=== PATIENT | female | born 1995 | race Hispanic/Latino ===

== ENCOUNTER 2017-08-19 04:42 | Emergency (ER) | payer MEDICAID, SELFPAY ==
--- NOTE | 2017-08-19 07:57 | CT ---
BRAIN CT WITHOUT IV CONTRAST: HISTORY: A 21-year-old female with a history of headache and numbness with neck tension, muscle cramping, and spasm. FINDINGS: No focal mass or midline shift. No intra- or extraaxial hemorrhage. Sinuses and mastoids are clear. IMPRESSION: No acute intracranial process. No mass or bleed or other acute process. POS: [facility]
== END 2017-08-19 08:26 | disposition home or self-care (01) ==
LOC: ERS 04:42
DX: R20.2 Paresthesia of skin (principal)
CPT/HCPCS: 70450